=== PATIENT | female | born 1970 | race Caucasian/White ===

== ENCOUNTER 2021-09-06 19:52 | Emergency (ER) | payer MEDICARE ==
[~2021-09-06] VITALS: Ht 160 cm; Wt 120.2 kg
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
[2021-09-06] MEDS ORDERED: AMOX-358 PO (20:43)
[2021-09-06 20:57] VITALS: BP 178/115
== END 2021-09-06 21:08 | disposition home or self-care (01) ==
LOC: ER 19:58
DX: K04.7 Periapical abscess without sinus (principal); Z20.822 Contact with and (suspected) exposure to COVID-19
CPT/HCPCS: 87636; 99283

== ENCOUNTER 2021-12-24 23:12 | Emergency (ER) | payer MEDICARE, MEDICAID ==
[~2021-12-24] VITALS: Ht 167 cm; Wt 127.0 kg
[~2021-12-24 23:12] MED LIST: AMOX-358 PO
[2021-12-24] MEDS ORDERED: NS IV 1000 ML 1,000 ML IV SCH (23:45)
[2021-12-24] MEDS ORDERED: IBUPROFEN 800 MG (MOTRIN) TAB PO ONE (23:45)
[2021-12-24] MEDS ORDERED: ACETAMINOPHEN 500 MG TAB (TYLENOL) PO ONE (23:45)
[2021-12-24 23:51] LABS: BASOPHILS # (AUTO) 0.1 10^3/uL (0.0-0.1); BASOPHILS % (AUTO) 1 % (0-10); EOSINOPHILS # (AUTO) 0.1 10^3/uL (0.0-0.3); EOSINOPHILS % (AUTO) 1 % (0-10); HEMATOCRIT 42 % (35-52); HEMOGLOBIN 13.5 g/dL (11.5-16.0); LYMPHOCYTES # (AUTO) 0.6 10^3/uL (1.0-4.0); LYMPHOCYTES % (AUTO) 7 % (12-44); MEAN CORPUSCULAR HEMOGLOBIN 29 pg (25-34); MEAN CORPUSCULAR HGB CONC 33 g/dL (32-36); MEAN CORPUSCULAR VOLUME 88 fL (80-99); MEAN PLATELET VOLUME 9.8 fL (9.0-12.2); MONOCYTES # (AUTO) 0.4 10^3/uL (0.0-1.0); MONOCYTES % (AUTO) 4 % (0-12); NEUTROPHILS # (AUTO) 8.2 10^3/uL (1.8-7.8); NEUTROPHILS % (AUTO) 86 % (42-75); PLATELET COUNT 231 10^3/uL (130-400); WHITE BLOOD COUNT 9.5 10^3/uL (4.3-11.0)
[2021-12-25 00:09] LABS: ALBUMIN 3.8 GM/DL (3.2-4.5)
[2021-12-25 00:10] LABS: CHLORIDE 93 MMOL/L (98-107); POTASSIUM 4.4 MMOL/L (3.6-5.0); SODIUM 133 MMOL/L (135-145)
[2021-12-25 00:12] LABS: GLUCOSE 230 MG/DL (70-105); TOTAL PROTEIN 7.6 GM/DL (6.4-8.2)
[2021-12-25 00:13] LABS: CARBON DIOXIDE 25 MMOL/L (21-32)
[2021-12-25 00:14] LABS: BILIRUBIN,TOTAL 0.3 MG/DL (0.1-1.0)
[2021-12-25 00:15] LABS: ALKALINE PHOSPHATASE 135 U/L (40-136)
[2021-12-25 00:16] LABS: GFR ESTIMATED 89
[2021-12-25 00:17] LABS: BUN/CREATININE RATIO 11
[2021-12-25 00:19] LABS: ALANINE AMINOTRANSFERASE 47 U/L (0-55); CREATINE KINASE 37 U/L (29-168); MAGNESIUM 1.5 MG/DL (1.6-2.4)
[2021-12-25 00:21] LABS: ERYTHROCYTE SEDIMENTATION RATE 90 MM/HR (0-30)
[2021-12-25 00:49] LABS: FIBRIN DEGRADATION PRODUCTS < 0.27 UG/ML (0.00-0.49); INR 0.9 (0.8-1.4); PARTIAL THROMBOPLASTIN TIME 28 SEC (24-35)
[2021-12-25] MEDS ORDERED: MOLN200C PO (01:29)
[2021-12-25] MEDS ORDERED: BENZONATATE 100 MG (TESSALON) CAPSULE PO SCH (01:30)
[2021-12-25] MEDS ORDERED: BENZ100C18 PO (01:30)
[2021-12-25] MEDS ORDERED: DEXA6TAB6 PO (01:30)
[2021-12-25] MEDS ORDERED: GUAI1TBM19 PO (01:30)
--- NOTE | 2021-12-25 01:30 | ED Cough/URI ---
General Chief Complaint: COVID19 Suspect/Confirmed Stated Complaint: FEVER,CHILLS,HURTS ALL OVER,SOB,KIDNEY PAIN,DIABET Source: patient History of Present Illness Date Seen by Provider: December 24, 2021 Time Seen by Provider: 23:30 Initial Comments PT ARRIVES VIA POV FROM HOME--DAUGHTER DROVE HER HERE DAUGHTER AND SON CARE FOR HER--EACH ONE IS THERE 3-4 DAYS A WEEK. PT STATES SHE HAS BEEN SICK SINCE Monday12/22/21 C/O NON-PRODUCTIVE COUGH AND CONGESTION, RUNNY NOSE C/O FEVER UP TO 102 AT HOME, ALONG WITH CHILLS AND SWEATS C/O HEADACHE C/O BODY ACHES C/O DECREASED TASTE AND SMELL C/O NAUSEA, NO VOMITING, NO DIARRHEA--STATES SHE HAS CHRONIC NAUSEA AND IS PRESCRIBED ZOFRAN. C/O FATIGUE C/O SORE THROAT C/O SHORTNESS OF BREATH PT HAS HISTORY OF ASTHMA, BUT DOES NOT TAKE ANY MEDICATIONS FOR IT AND DOES NOT HAVE ANY INHALERS PT HAS NON-INSULIN DEPENDENT DIABETES, BUT HAS NOT BEEN CHECKING HER BLOOD SUGARS. PT IS NOT COVID OR FLU VACCINATED DENIES ANY KNOWN SICK CONTACTS. PT HAS NOT TAKEN ANYTHING FOR SYMPTOMS AT ANY TIME SYMPTOMS ARE NO DIFFERENT TONIGHT ( MONDAY NIGHT/HOLIDAY WEEKEND) HAS NOT SOUGHT CARE UNTIL TONIGHT PCP: SEES A DR BRIGHT IN [place]--USED TO LIVE THERE, HAS BEEN HER DR FOR 15 YEARS. Allergies and Home Medications Allergies Coded Allergies: No Allergy Information Available (Unverified , 12/24/21) Patient Home Medication List Home Medication List Reviewed: Yes Amoxicillin/Potassium Clav (Augmentin 875-125 Tablet) 1 Each Tablet, 1 EACH PO BID Prescribed by: CARLEE GRIFFIN on 09/06/212042 Benzonatate (Tessalon Perles) 100 Mg Capsule, 200 MG PO TID Prescribed by: CHELO SOLITARIO on 12/25/21129 Dexamethasone (Decadron) 6 Mg Tablet, 6 MG PO DAILY Prescribed by: CHELO SOLITARIO on 12/25/21129 Guaifenesin/Dextromethorphan (Mucinex Dm ER 1,200-60 mg Tab) 1,200 Mg-60 Mg Tb mp.12hr, 1 EACH PO BID Prescribed by: CHELO SOLITARIO on 5/28/22 0130 Molnupiravir (Molnupiravir (Eua)) 200 Mg Capsule, 800 MG PO BID Prescribed by: CHELO SOLITARIO on 12/25/21 0129 Review of Systems Review of Systems Constitutional: see HPI, chills, diaphoresis, fever, malaise, weakness EENTM: see HPI, nose congestion, throat pain Respiratory: see HPI, cough, short of breath; No wheezing Cardiovascular: no symptoms reported; No chest pain Gastrointestinal: see HPI; No abdominal pain, No diarrhea; loss of appetite, nausea; No vomiting Genitourinary: no symptoms reported Musculoskeletal: see HPI Skin: no symptoms reported Psychiatric/Neurological: See HPI, Headache Hematologic/Lymphatic: No Symptoms Reported Immunological/Allergic: no symptoms reported Past Xkajhiq-Rkmwvf-Nzsche Hx Patient Social History Tobacco Use?: Yes (1 PPD) Tobacco type used: Cigarettes Smoking Status: Current Everyday Smoker Substance use?: No Alcohol Use?: No Past Medical History Surgeries: No Respiratory: Yes Asthma Cardiac: Yes High Cholesterol, Hypertension 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 oz. kg; 46.00 BMI Method: General Appearance: WD/WN, no apparent distress, other (FREQUENT HARSH, DRY COUGH ON ARRIVAL. PT TALKS NON-STOP AT LENGTH IN FULL SENTENCES. NO DYSPNEA. ) HEENT: PERRL/EOMI, normal ENT inspection (MILD NASAL CONGESTION), TMs normal, pharynx normal Neck: normal inspection Respiratory: chest non-tender, normal breath sounds, no respiratory distress, no accessory muscle use Cardiovascular: normal peripheral pulses, regular rate, rhythm, no JVD, no murmur, tachycardia Gastrointestinal: non tender, soft Extremities: non-tender, no calf tenderness, normal capillary refill, pedal edema (1+ BILATERALLY) Neurologic/Psychiatric: butt trimmer II-XII nml as tested, no motor/sensory deficits, alert, oriented x 3 Skin: normal color (FLUSHED), warm/dry; No rash Focused Exam Sepsis Stage: Ruled Out Reason for ruling out sepsis: DOES NOT MEET CRITERIA Possible Source: Pulmonary Lactate Level 12/25/21 00:25: Lactic Acid Level 2.42*H Time of Focused Exam: 01:00 Respiratory: Normal Breath Sounds, No Accessory Muscle Use, No Respiratory Distress Cardiovascular: Regular Rate, Rhythm, No Murmur Capillary Refill: Less Than 3 Seconds Skin: normal color, warm/dry Lactic Acid Level Laboratory Tests Test 12/25/21 00:25 Lactic Acid Level 2.42 MMOL/L (0.50-2.00) *H Within 3hrs of presentation: Admin fluids, Blood cultures prior to ABX's, Focus exam, Lactate level, Other (NO ANTIBIOTICS GIVEN PT HAS COVID WITHOUT PNEUMONIA ) Progress/Results/Core Measures Suspected Sepsis SIRS Temperature: Pulse: Respiratory Rate: Laboratory Tests 12/24/21 23:30: White Blood Count 9.5 Blood Pressure / Mean: 12/25/21 00:25: Lactic Acid Level 2.42*H Laboratory Tests 12/24/21 23:30: Creatinine 0.80, INR Comment 0.9, Platelet Count 231, Total Bilirubin 0.3 Results/Orders Lab Results Laboratory Tests Test 12/24/21 23:30 12/25/21 00:18 12/25/21 00:25 12/25/21 01:15 Range/Units White Blood Count 9.5 4.3-11.0 10^3/uL Red Blood Count 4.72 3.80-5.11 10^6/uL Hemoglobin 13.5 11.5-16.0 g/dL Hematocrit 42 35-52 % Mean Corpuscular Volume 88 80-99 fL Mean Corpuscular Hemoglobin 29 25-34 pg Mean Corpuscular Hemoglobin Concent 33 32-36 g/dL Red Cell Distribution Width 14.1 10.0-14.5 % Platelet Count 231 130-400 10^3/uL Mean Platelet Volume 9.8 9.0-12.2 fL Immature Granulocyte % (Auto) 1 % Neutrophils (%) (Auto) 86 H 42-75 % Lymphocytes (%) (Auto) 7 L 12-44 % Monocytes (%) (Auto) 4 0-12 % Eosinophils (%) (Auto) 1 0-10 % Basophils (%) (Auto) 1 0-10 % Neutrophils # (Auto) 8.2 H 1.8-7.8 10^3/uL Lymphocytes # (Auto) 0.6 L 1.0-4.0 10^3/uL Monocytes # (Auto) 0.4 0.0-1.0 10^3/uL Eosinophils # (Auto) 0.1 0.0-0.3 10^3/uL Basophils # (Auto) 0.1 0.0-0.1 10^3/uL Immature Granulocyte # (Auto) 0.1 0.0-0.1 10^3/uL Erythrocyte Sedimentation Rate 90 H 0-30 MM/HR Prothrombin Time 13.0 12.2-14.7 SEC INR Comment 0.9 0.8-1.4 Activated Partial Thromboplast Time 28 24-35 SEC D-Dimer < 0.27 0.00-0.49 UG/ML Sodium Level 133 L 135-145 MMOL/L Potassium Level 4.4 3.6-5.0 MMOL/L Chloride Level 93 L 98-107 MMOL/L Carbon Dioxide Level 25 21-32 MMOL/L Anion Gap 15 H 5-14 MMOL/L Blood Urea Nitrogen 9 7-18 MG/DL Creatinine 0.80 0.60-1.30 MG/DL Estimat Glomerular Filtration Rate 89 BUN/Creatinine Ratio 11 Glucose Level 230 H 70-105 MG/DL Calcium Level 9.0 8.5-10.1 MG/DL Corrected Calcium 9.2 8.5-10.1 MG/DL Magnesium Level 1.5 L 1.6-2.4 MG/DL Total Bilirubin 0.3 0.1-1.0 MG/DL Aspartate Amino Transf (AST/SGOT) 49 H 5-34 U/L Alanine Aminotransferase (ALT/SGPT) 47 0-55 U/L Alkaline Phosphatase 135 40-136 U/L Total Creatine Kinase 37 29-168 U/L Myoglobin 32.9 10.0-92.0 NG/ML Troponin I < 0.028 <0.028 NG/ML C-Reactive Protein High Sensitivity 5.75 H 0.00-0.50 MG/DL B-Type Natriuretic Peptide < 10.0 <100.0 PG/ML Total Protein 7.6 6.4-8.2 GM/DL Albumin 3.8 3.2-4.5 GM/DL Procalcitonin 0.12 H <0.10 NG/ML Serum Test, Qualitative NEGATIVE NEGATIVE Influenza Type A (RT-PCR) Not Detected Not Detecte Influenza Type B (RT-PCR) Not Detected Not Detecte SARS-CoV-2 RNA (RT-PCR) Detected H Not Detecte Glucometer 223 H 70-110 MG/DL Lactic Acid Level 2.42 *H 0.50-2.00 MMOL/L Urine Color YELLOW Urine Clarity CLEAR Urine pH 6.0 5-9 Urine Specific [place] 1.010 L 1.016-1.022 Urine Protein 1+ H NEGATIVE Urine Glucose (UA) NEGATIVE NEGATIVE Urine Ketones NEGATIVE NEGATIVE Urine Nitrite NEGATIVE NEGATIVE Urine Bilirubin NEGATIVE NEGATIVE Urine Urobilinogen 0.2 < = 1.0 MG/DL Urine Leukocyte Esterase NEGATIVE NEGATIVE Urine RBC (Auto) NEGATIVE NEGATIVE Urine RBC NONE /HPF Urine WBC NONE /HPF Urine Squamous Epithelial Cells 0-2 /HPF Urine Crystals NONE /LPF Urine Bacteria NEGATIVE /HPF Urine Casts NONE /LPF Urine Mucus NEGATIVE /LPF Urine Culture Indicated CULTURE PENDING My Orders Orders - CHELO SOLITARIO DO Covid 19 Inhouse Test (12/24/21 23:24) Influenza A And B By Pcr (12/24/21 23:24) Isolation Central Supply Req (12/24/21 23:24) Cbc With Automated Diff (12/24/21 23:32) Comprehensive Metabolic Panel (12/24/21 23:32) Blood Culture (12/24/21 23:32) Urinalysis (12/24/21 23:32) Urine Culture (12/24/21 23:32) Protime With Inr (12/24/21 23:32) Partial Thromboplastin Time (12/24/21 23:32) Ed Iv/Invasive Line Start (12/24/21 23:32) Ed Iv/Invasive Line Start (12/24/21 23:32) Vital Signs Adult Sepsis Patie Q15M (12/24/21 23:32) O2 (12/24/21 23:32) Remove Rings In Anticipation O (12/24/21 23:32) Lactic Acid Analyzer (12/24/21 23:32) Monitor-Rhythm Ecg Trace Only (12/24/21 23:32) Bnp Azul (12/24/21 23:32) Creatine Kinase (12/24/21 23:32) Hs C Reactive Protein (12/24/21 23:32) Fibrin Degradation Products (12/24/21 23:32) Magnesium (12/24/21 23:32) Procalcitonin (Pct) (12/24/21 23:32) Erythrocyte Sedimentation Rate (12/24/21 23:32) Myoglobin Serum (12/24/21 23:32) Troponin I [place] (12/24/21 23:32) Hcg,Qualitative Serum (12/24/21 23:32) Acetaminophen Tablet (Tylenol Tablet) (12/24/21 23:45) Ibuprofen Tablet (Motrin Tablet) (12/24/21 23:45) Ed Iv/Invasive Line Start (12/24/21 23:45) Ns Iv 1000 Ml (Sodium Chloride 0.9%) (12/24/21 23:45) Accucheck Stat ONCE (12/24/21 23:45) Ekg Tracing (12/24/21 23:45) Chest 1 View, Ap/Pa Only (12/25/21 00:01) Dexamethasone Injection (Decadron Inje (12/25/21 01:30) Benzonatate Capsule (Tessalon Perles) (12/25/21 01:30) Medications Given in ED Current Medications Medications Dose Ordered Sig/Merry Route Start Time Stop Time Status Last Admin Dose Admin Acetaminophen 1,000 mg ONCE ONCE PO 12/24/21 23:45 12/24/21 23:47 DC 12/25/21 00:25 1,000 MG Ibuprofen 800 mg ONCE ONCE PO 12/24/21 23:45 12/24/21 23:47 DC 12/25/21 00:25 800 MG Vital Signs/I&O 12/25/21 12/25/21 12/25/21 12/25/21 00:05 00:25 00:25 01:57 Temp 38.9 39.0 39.0 38.0 Pulse 112 112 Resp 26 20 B/P (MAP) 154/100 (118) 147/83 Pulse Ox 97 98 O2 Delivery Room Air Room Air Capillary Refill : Point of Care Testing Finger Stick Blood Glucose: 223 Blood Glucose Action Taken: DOC AND RN NOTIFIED Progress Note : Progress Note PLACED IN ISOLATION ROOM PPE WORN AT ALL TIMES COVID AND FLU TESTING DONE SEPSIS PROTOCOL INITIATED GIVEN: -IV FLUIDS -TYLENOL AND MOTRIN FOR PAIN AND FEVER -DECADRON FOR COVID SYMPTOMS NO MONOCLONAL ANTIBODIES AVAILABLE AT THIS HOUR, IS A HOLIDAY WEEKEND AND NO OUTPATIENT INFUSION CLINIC UNTIL NEXT MONDAY, AND WILL THEN BE OUTSIDE TREATMENT WINDOW AT THAT TIME, SHE HAS BEEN HAVING SYMPTOMS SINCE 12/21/21 WILL PRESCRIBE ORAL MEDICATION FOR COVID SYMPTOMS SHE IS STILL IN TREATMENT WINDOW FOR THAT OPTION. PT DOES NOT MEET CRITERIA FOR INPATIENT CARE COUGH HAS RESOLVED DURING ER STAY NO DYSPNEA NO HYPOXIA--O2 SATS 96% ON ROOM AIR FEVER IS DOWN WITH MEDICATIONS PT TOLERATING LIQUIDS AND NO NAUSEA IN ER. ECG Initial ECG Impression Date: December 25, 2021 Initial ECG Impression Time: 00:21 Initial ECG Rate: 111 Initial ECG Rhythm: S.Tach Diagnostic Imaging Comments CXR--NO ACUTE PROCESS, PENDING RADIOLOGIST REVIEW Reviewed: Reviewed by Me Departure Impression Primary Impression: COVID-19 virus infection Additional Impressions: NIDDM Obesity Disposition: HOME, SELF-CARE Condition: Stable Departure-Patient Inst. Decision time for Depature: 01:15 Referrals: NO,LOCAL PHYSICIAN (PCP/Family) Primary Care Physician Patient Instructions: COVID-19 Home Care/Discharge, Molnupiravir FDA Fact Sheet, COVID-19 Vaccines Add. Discharge Instructions: LOTS OF CLEAR LIQUIDS--WATER, BROTH, JELLO, GATORADE TYLENOL 1 GRAM PLUS MOTRIN 800 MG 4 TIMES A DAY FOR PAIN OR FEVER CONTINUE YOUR REGULAR MEDICATIONS PRESCRIBED QUARANTINE YOURSELF AND ALL HOUSEHOLD OR CLOSE CONTACTS FOR 10 DAYS. RETURN TO ER IF SYMPTOMS WORSEN All discharge instructions reviewed with patient and/or family. Voiced understanding. Scripts Benzonatate (TESSALON PERLES) 100 Mg Capsule 200 MG PO TID, #60 CAP Prov: ALTAF,CHELO K DO 12/25/21 Guaifenesin/Dextromethorphan (Mucinex Dm ER 1,200-60 mg Tab) 1,200 Mg-60 Mg Tbmp.12hr 1 EACH PO BID, #20 EA Prov: ALTAF,CHELO K DO 12/25/21 Dexamethasone (Decadron) 6 Mg Tablet 6 MG PO DAILY, #10 TAB Prov: ALTAFCHELO K DO 12/25/21 Molnupiravir (Molnupiravir (Eua)) 200 Mg Capsule 800 MG PO BID for 5 Days, #40 CAP Prov: CHELO SOLITARIO DO 12/25/21 CHELO SOLITARIO DO December 25, 2021 01:30
[2021-12-25 01:51] LABS: BILIRUBIN,URINE NEGATIVE (NEGATIVE); CLARITY,URINE CLEAR; COLOR,URINE YELLOW; GLUCOSE, URINE (UA) NEGATIVE (NEGATIVE); KETONES,URINE NEGATIVE (NEGATIVE); LEUKOCYTE ESTERASE ,URINE NEGATIVE (NEGATIVE); NITRITE,URINE NEGATIVE (NEGATIVE); PROTEIN,URINE 1+ (NEGATIVE)
[2021-12-25 01:52] LABS: BACTERIA,URINE NEGATIVE /HPF; SQUAMOUS EPITHELIAL CELL,UR 0-2 /HPF
[2021-12-25 01:57] VITALS: BP 147/83
--- NOTE | 2021-12-25 06:14 | Diagnostic Imaging Report ---
INDICATION: Cough EXAMINATION: Chest 12/25/2021 FINDINGS: The cardiomediastinal silhouette is unremarkable. The pulmonary vasculature is within normal limits. The lungs and pleural spaces are clear. IMPRESSION: No evidence of an acute cardiopulmonary process. Dictated by: Dictated on workstation # [id number]
== END 2021-12-25 02:01 | disposition home or self-care (01) ==
LOC: EDUNIT# 23:12 → ER 23:16
DX: U07.1 COVID-19 (principal); E11.9 Type 2 diabetes mellitus without complications; E66.9 Obesity, unspecified; F17.210 Nicotine dependence, cigarettes, uncomplicated; Z68.42 Body mass index [BMI] 45.0-49.9, adult; Z28.310 Unvaccinated for COVID-19
CPT/HCPCS: 36415; 71045; 80053; 81000; 82550; 82947; 83605; 83735; 83874; 83880; 84145; 84484; 84703; 85025; 85379; 85610; 85652; 85730; 86141; 87040; 87088; 87636; 93041

== ENCOUNTER 2023-03-14 09:14 | Inpatient (IN) | payer MEDICARE, MEDICAID ==
[~2023-03-14] VITALS: Ht 162.6 cm; Wt 105.8 kg
[~2023-03-14 09:14] MED LIST changes: +BENZ100C18 PO; +DEXA6TAB6 PO; +GUAI1TBM19 PO; +MOLN200C PO
[2023-03-14 09:39] LABS: BASOPHILS # (AUTO) 0.1 10^3/uL (0.0-0.1); BASOPHILS % (AUTO) 1 % (0-10); EOSINOPHILS # (AUTO) 0.2 10^3/uL (0.0-0.3); EOSINOPHILS % (AUTO) 1 % (0-10); HEMATOCRIT 44 % (35-52); LYMPHOCYTES # (AUTO) 3.5 10^3/uL (1.0-4.0); LYMPHOCYTES % (AUTO) 28 % (12-44); MEAN CORPUSCULAR HEMOGLOBIN 30 pg (25-34); MEAN CORPUSCULAR HGB CONC 32 g/dL (32-36); MEAN CORPUSCULAR VOLUME 92 fL (80-99); MEAN PLATELET VOLUME 10.2 fL (9.0-12.2); MONOCYTES # (AUTO) 0.6 10^3/uL (0.0-1.0); MONOCYTES % (AUTO) 5 % (0-12); NEUTROPHILS # (AUTO) 8.4 10^3/uL (1.8-7.8); NEUTROPHILS % (AUTO) 66 % (42-75); PLATELET COUNT 294 10^3/uL (130-400); WHITE BLOOD COUNT 12.7 10^3/uL (4.3-11.0)
[2023-03-14] MEDS ORDERED: ASPIRIN 81 MG CHEWABLE TABLET PO ONE (09:45)
[2023-03-14] MEDS ORDERED: NITROGLYCERIN 0.4 MG SL TABLETS BTL 25'S SL PRN (09:45)
--- NOTE | 2023-03-14 09:48 | ED General ---
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 PT DESCRIBES CP SCRATCHY (KO DORMAN) History of Present Illness Date Seen by Provider: Mar 14, 2023 Time Seen by Provider: 09:15 Initial Comments This is a 52 year old female who presents with SOA and chest pain. Patient reports she has experienced SOA since Monday. Patient states that she feels like there is a wire brush in her lungs that's preventing her from taking a deep breath. Patient states that she does have asthma. Patient has also experienced chest pain on the left side and nausea since Monday. It has progressively got worse and this morning the pain was a 6-9/10 which is why she came to the hospital. Reports the pain comes and goes. Currently, patient feels a heaviness on her chest. The pain radiates down the L arm and down the abdomen. Hot showers make the pain better and taking a deep breath makes the pain worse. Patient states that she also has an associated stabbing pain on her back on the right side. Normally uses a wheelchair because of her "bad knees". Denies aspirin use. Patient denies fever, chills, vomiting, sweating, urinary urge ncy/frequency/pain, (KO DORMAN) Initial Comments Patient was interviewed and examined by me along with the PA student. Patient describes intermittent chest pains for a few days. Pain is in the center of her chest and feels like a wire brush scraping and sometimes a heaviness or pressure. It radiates to the left arm and her upper back. The back pain is stabbing at times. This is her fourth day of symptoms. (SUZANNE LANTIGUA MD) Allergies and Home Medications Allergies Coded Allergies: iodine (Verified Allergy, Intermediate, Rash, 03/14/23) Hives and swelling to topical iodine. morphine (Verified Allergy, Unknown, 03/14/23) Patient Home Medication List Home Medication List Reviewed: Yes (SUZANNE LANTIGUA MD) Acetaminophen (Tylenol Extra Strength) 500 Mg Tablet, 500 MG PO Q6H PRN for PAIN-MILD (1-4), (Reported) Entered as Reported by: PETR PERRIN on 8/15/23 1414 Last Action: Reviewed Albuterol Sulfate (Ventolin Hfa) 90 Mcg Hfa.aer.ad, 2 PUFF INH Q6H PRN for SHORTNESS OF BREATH, (Reported) Entered as Reported by: PETR PERRIN on 03/14/231413 Last Action: Reviewed Chlorpheniramine Maleate (Chlorpheniramine Maleate) 4 Mg Tablet, 4 MG PO QID PRN for ALLERGY SYMPTOMS, (Reported) Entered as Reported by: PETR PERRIN on 03/14/231413 Last Action: Reviewed Furosemide (Furosemide) 40 Mg Tablet, 20 MG PO BID, (Reported) Entered as Reported by: PETR PERRIN on 03/14/231413 Last Action: Reviewed Ibuprofen (Ibuprofen) 200 Mg Tablet, 600 MG PO Q6H PRN for PAIN-MILD (1-4), (Reported) Entered as Reported by: PETR PERRIN on 03/14/231413 Last Action: Reviewed Metformin HCl (Metformin HCl ER) 500 Mg Tab.er.24h, 500 MG PO BID, (Reported) Entered as Reported by: PETR PERRIN on 03/14/231413 Last Action: Reviewed Discontinued Medications Amoxicillin/Potassium Clav (Augmentin 875-125 Tablet) 1 Each Tablet, 1 EACH PO BID Discontinued Reason: No Longer Taking Prescribed by: CARLEE GRIFFIN on 09/06/212042 Last Action: Discontinued Benzonatate (Tessalon Perles) 100 Mg Capsule, 200 MG PO TID Discontinued Reason: No Longer Taking Prescribed by: CHELO SOLITARIO on 12/25/21129 Last Action: Discontinued Dexamethasone (Decadron) 6 Mg Tablet, 6 MG PO DAILY Discontinued Reason: No Longer Taking Prescribed by: CHELO SOLITARIO on 12/25/21129 Last Action: Discontinued Guaifenesin/Dextromethorphan (Mucinex Dm ER 1,200-60 mg Tab) 1,200 Mg-60 Mg Tbmp.12hr, 1 EACH PO BID Discontinued Reason: No Longer Taking Prescribed by: CHELO SOLITARIO on 12/25/21129 Last Action: Discontinued Molnupiravir (Molnupiravir (Eua)) 200 Mg Capsule, 800 MG PO BID Discontinued Reason: No Longer Taking Prescribed by: CHELO SOLITARIO on 12/25/21128 Last Action: Discontinued Review of Systems Review of Systems Constitutional: No fever EENTM: see HPI Respiratory: dyspnea on exertion, short of breath Cardiovascular: chest pain Gastrointestinal: no symptoms reported Genitourinary: No dysuria, No frequency Musculoskeletal: no symptoms reported Skin: no symptoms reported Psychiatric/Neurological: No Symptoms Reported (KO DORMAN) Past Ydjijvz-Fgipbt-Ccolgu Hx Patient Social History Tobacco Use?: Yes Tobacco type used: Cigarettes Smoking Status: Current Everyday Smoker Use of E-Cig and/or Vaping dev: No Substance use?: Yes Substance type: Marijuana (gummies) Alcohol Use?: No Pt feels they are or have been: No (KO DORMAN) Tobacco Use?: Yes Tobacco type used: Cigarettes Smoking Status: Current Everyday Smoker (SUZANNE LANTIGUA MD) Past Medical History Surgery/Hospitalization HX: asthma, dm, raynauds Surgeries: No Respiratory: Yes Asthma Cardiac: No 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 oz. kg; 45.00 BMI Method: General Appearance: WD/WN Eyes: Bilateral Eye Normal Inspection HEENT: PERRL/EOMI Respiratory: No Accessory Muscle Use, Wheezing (expiratory wheeze) Cardiovascular: Regular Rate, Rhythm Gastrointestinal: Normal Bowel Sounds Back: No CVA Tenderness Extremity: Normal Capillary Refill, No Pedal Edema Neurologic/Psychiatric: Alert, Oriented x3 Skin: Normal Color, Warm/Dry (KO DORMAN) Progress/Results/Core Measures Suspected Sepsis SIRS Temperature: Pulse: 102 Respiratory Rate: 17 Laboratory Tests 03/14/23 09:30: White Blood Count 12.7H Blood Pressure 171 /96 Mean: 121 Laboratory Tests 03/14/23 09:30: Creatinine 0.78, INR Comment 0.9, Platelet Count 294, Total Bilirubin 0.4 (KO DORMAN) Results/Orders Lab Results Laboratory Tests Test 03/14/23 09:30 Range/Units White Blood Count 12.7 H 4.3-11.0 10^3/uL Red Blood Count 4.73 3.80-5.11 10^6/uL Hemoglobin 14.0 11.5-16.0 g/dL Hematocrit 44 35-52 % Mean Corpuscular Volume 92 80-99 fL Mean Corpuscular Hemoglobin 30 25-34 pg Mean Corpuscular Hemoglobin Concent 32 32-36 g/dL Red Cell Distribution Width 14.6 H 10.0-14.5 % Platelet Count 294 130-400 10^3/uL Mean Platelet Volume 10.2 9.0-12.2 fL Immature Granulocyte % (Auto) 0 % Neutrophils (%) (Auto) 66 42-75 % Lymphocytes (%) (Auto) 28 12-44 % Monocytes (%) (Auto) 5 0-12 % Eosinophils (%) (Auto) 1 0-10 % Basophils (%) (Auto) 1 0-10 % Neutrophils # (Auto) 8.4 H 1.8-7.8 10^3/uL Lymphocytes # (Auto) 3.5 1.0-4.0 10^3/uL Monocytes # (Auto) 0.6 0.0-1.0 10^3/uL Eosinophils # (Auto) 0.2 0.0-0.3 10^3/uL Basophils # (Auto) 0.1 0.0-0.1 10^3/uL Immature Granulocyte # (Auto) 0.0 0.0-0.1 10^3/uL Prothrombin Time 12.5 12.2-14.7 SEC INR Comment 0.9 0.8-1.4 Activated Partial Thromboplast Time 30 24-35 SEC D-Dimer 0.30 0.00-0.49 UG/ML Sodium Level 139 135-145 MMOL/L Potassium Level 4.1 3.6-5.0 MMOL/L Chloride Level 102 98-107 MMOL/L Carbon Dioxide Level 25 21-32 MMOL/L Anion Gap 12 5-14 MMOL/L Blood Urea Nitrogen 16 7-18 MG/DL Creatinine 0.78 0.60-1.30 MG/DL Estimat Glomerular Filtration Rate 91 BUN/Creatinine Ratio 21 Glucose Level 202 H 70-105 MG/DL Mean Blood Glucose 226 H <=126 mg/dL Hemoglobin A1c 9.5 H 4.0-5.6 % Calcium Level 9.4 8.5-10.1 MG/DL Corrected Calcium 9.5 8.5-10.1 MG/DL Magnesium Level 1.9 1.6-2.4 MG/DL Total Bilirubin 0.4 0.1-1.0 MG/DL Aspartate Amino Transf (AST/SGOT) 24 5-34 U/L Alanine Aminotransferase (ALT/SGPT) 17 0-55 U/L Alkaline Phosphatase 109 40-136 U/L Myoglobin 60.5 10.0-92.0 NG/ML Troponin I 3.322 *H <0.028 NG/ML Total Protein 7.6 6.4-8.2 GM/DL Albumin 3.9 3.2-4.5 GM/DL (SUZANNE LANTIGUA MD) My Orders Orders - SUZANNE LANTIGUA MD Ekg Tracing (03/14/23 09:17) Cbc With Automated Diff (03/14/23 09:18) Magnesium (03/14/23 09:18) Chest 1 View, Ap/Pa Only (03/14/23 09:18) Comprehensive Metabolic Panel (03/14/23 09:18) Myoglobin Serum (03/14/23 09:18) Protime With Inr (03/14/23:18) Partial Thromboplastin Time (03/14/23 09:18) O2 (03/14/23 09:18) Monitor-Rhythm Ecg Trace Only (03/14/23 09:18) Lipid Panel (03/15/23 06:00) Ed Iv/Invasive Line Start (03/14/23 09:18) Troponin I [place] (03/14/23 09:18) Fibrin Degradation Products (03/14/23 09:39) Nitroglycerin 0.4 Mg Btl 25's (Nitrostat (03/14/23 09:45) Aspirin Chewable Tablet (Aspirin Chewabl (03/14/23 09:45) Clopidogrel Tablet (Clopidogrel Tablet) (03/14/23 11:00) Ns Iv 1000 Ml (Sodium Chloride 0.9%) (03/14/23 11:00) Metoprolol Succinate (Xl) Tab (Metoprolo (03/14/23 11:30) Enoxaparin Injection (Enoxaparin Injecti (03/14/23 11:30) Ed Admission (Communication) (03/14/23 11:31) (SUZANNE LANTIGUA MD) Medications Given in ED (SUZANNE LANTIGUA MD) Vital Signs/I&O 03/14/23 03/14/23 03/14/23 09:15 09:39 11:45 Temp 36.8 36.8 Pulse 102 99 Resp 17 17 B/P (MAP) 171/96 (121) 176/87 Pulse Ox 98 98 O2 Delivery Room Air Room Air Room Air (SUZANNE LANTIGUA MD) Vital Signs/I&O Capillary Refill : (KO DORMAN) Blood Pressure Mean: 121 Progress Note : Time: 11:23 Progress Note Patient was interviewed and examined by me personally along with PA student. PA initiated interview and exam shortly after arrival. I placed the chest pain order set on review of chief complaint. Report was received from the student and I personally interviewed and examined the patient at 0952. ST depression was noted on the EKG. There was no ST elevation. Labs were reviewed and int erpreted by me. Troponin elevation of 3.3 was noted. CBC demonstrated minimal elevation in WBC of 12.7. Glucose was 202 on the chemistry. CBC and chemistry were otherwise unremarkable. Coag panel including D-dimer was negative. Patient received nitroglycerin x1 which reduced her pain from 7/10 down to 4/10. Her systolic blood pressure dropped to 114 at that time. No further nitroglycerin was given. Case was discussed with Dr. Soto, record librarian on- call. He recommended adding Plavix 300 mg and a 1 L normal saline bolus. He recommended coronary angiography. Dr. Munguia, Dr. Soto's cardiology partner, presented to the emergency room to discuss angiography with the patient. Patient disclosed at that time that she had a topical iodine allergy. Risks and benefits of proceeding with catheterization were reviewed with the patient by Dr. Munguia and myself. Patient was offered pretreatment for possible iodine allergy. Patient was fearful of possible reaction to iodine and declined angiography. Patient will be admitted to the ICU for medical management. Dr. Munguia recommended further treatment with Toprol-XL 100 mg and Lovenox 100 mg in the emergency room. Case was discussed with Dr. Gaspar who was agreeable to admission. (SUZANNE LANTIGUA MD) ECG Initial ECG Impression Date: Mar 14, 2023 Initial ECG Impression Time: 09:20 Initial ECG Rate: 100 Initial ECG Rhythm: S.Tach Comment Sinus tachycardia with no ST elevation. ST depression was noted in multiple leads. No abnormal intervals or axis deviation. (SUZANNE LANTIGUA MD) Diagnostic Imaging Diagonstic Imaging: Xray Plain Films/CT/US/NM/MRI: chest Comments NAME: [facility] REC#: [id number] PT STATUS: REG ER : 1970 PHYSICIAN: SUZANNE LANTIGUA MD ADMIT DATE: 03/14/23/ER Draft Date of Exam:03/14/23 CHEST 1 VIEW, AP/PA ONLY INDICATION: Chest pain COMPARISON: 12/25/2022 TECHNIQUE: Single radiograph of the chest dated 03/15/2023. FINDINGS: The cardiac silhouette is within normal limits in size. No significant pulmonary vascular congestion. Calcified right hilar lymph nodes are again seen. The lungs are clear. No pleural effusion. No pneumothorax. No acute osseous abnormality. IMPRESSION: Stable appearing examination without acute cardiopulmonary abnormality and evidence of chronic granulomatous disease. Dictated on workstation # [id number] Dict: 03/14/23 0946 Trans: 03/14/23 1003 [facility] [id number] Interpreted by: CELIO KHANNA MD (SUZANNE LANTIGUA MD) Departure Communication (Admissions) Time/Spoke to Admitting Phy: 11:15 Dr. Gaspar Time/Spoke to Consulting Phy: 11:15 Dr. Soto (SUZANNE LANTIGUA MD) Impression Primary Impression: NSTEMI (non-ST elevated myocardial infarction) Additional Impression: Chest pain Qualified Codes: R07.9 - Chest pain, unspecified Disposition: ADMITTED INPATIENT Condition: Stable Admissions Decision to Admit Reason: Admit from ER (General) Decision to Admit/Date: Mar 14, 2023 Time/Decision to Admit Time: 11:15 (SUZANNE LANTIGUA MD) Departure-Patient Inst. Referrals: NO,LOCAL PHYSICIAN (PCP/Family) Primary Care Physician Add. Discharge Instructions: All discharge instructions reviewed with patient and/or family. Voiced understanding. Medical Student Attestation and Attending Note: I have personally interviewed and examined this patient along with CAM Patton student. I have reviewed student documentation including history, physical, and assessments. I agree with the documentation except where otherwise noted. Exam: General: Alert, oriented, no acute distress, well developed HEENT: Normocephalic and atraumatic Heart: Regular rate and rhythm without murmur Lungs: Clear to auscultation bilaterally with normal effort, upper anterior chest slightly tender to palpation Abdomen: Soft, nontender, nondistended, normal bowel sounds Neuropsych: Alert, oriented, no focal deficits Extremities: No significant edema, calves nontender Skin: Warm and dry without rashes (SUZANNE LANTIGUA MD) KO DORMAN Mar 14, 2023 09:48 SUZANNE LANTIGUA MD Mar 14, 2023 10:51
[2023-03-14 09:49] LABS: INR 0.9 (0.8-1.4); PROTHROMBIN TIME PATIENT 12.5 SEC (12.2-14.7)
[2023-03-14 09:53] LABS: ALBUMIN 3.9 GM/DL (3.2-4.5); POTASSIUM 4.1 MMOL/L (3.6-5.0)
[2023-03-14 09:55] LABS: CALCIUM 9.4 MG/DL (8.5-10.1)
[2023-03-14 09:56] LABS: TOTAL PROTEIN 7.6 GM/DL (6.4-8.2)
[2023-03-14 09:57] LABS: BILIRUBIN,TOTAL 0.4 MG/DL (0.1-1.0)
[2023-03-14 09:59] LABS: CREATININE SERUM 0.78 MG/DL (0.60-1.30)
[2023-03-14 10:02] LABS: MAGNESIUM 1.9 MG/DL (1.6-2.4)
--- NOTE | 2023-03-14 10:03 | Diagnostic Imaging Report ---
INDICATION: Chest pain COMPARISON: 12/25/2022 TECHNIQUE: Single radiograph of the chest dated 03/15/2023. FINDINGS: The cardiac silhouette is within normal limits in size. No significant pulmonary vascular congestion. Calcified right hilar lymph nodes are again seen. The lungs are clear. No pleural effusion. No pneumothorax. No acute osseous abnormality. IMPRESSION: Stable appearing examination without acute cardiopulmonary abnormality and evidence of chronic granulomatous disease. Dictated by: Dictated on workstation # [id number]
[2023-03-14] MEDS ORDERED: NS IV 1000 ML 0 ML ONE (10:52)
[2023-03-14] MEDS ORDERED: HEParin (CATH LAB) 0 ML IV ONE (10:52)
[2023-03-14] MEDS ORDERED: LIDOCAINE 1% INJ 20 ML VIAL ONE (10:52)
[2023-03-14] MEDS ORDERED: HEParin 1000 UNIT/ML (10ML VIAL) FOR BOLUS ONE (10:55)
[2023-03-14] MEDS ORDERED: MIDAZOLAM INJ 5 MG/5 ML VIAL ONE (10:55)
[2023-03-14] MEDS ORDERED: fentaNYL INJECTION 100 MCG/2 ML VIAL ONE (10:55)
[2023-03-14] MEDS ORDERED: NITRO DRIP 25000 MCG/D5W 0 ML IV ONE (10:56)
[2023-03-14] MEDS ORDERED: NS IV 1000 ML 1,000 ML IV SCH (11:00)
[2023-03-14] MEDS ORDERED: CLOPIDOGREL 300 MG TABLET PO ONE (11:00)
--- NOTE | 2023-03-14 11:22 | Consultation-Cardiology ---
HPI-Cardiology Cardiology Consultation: Date of Consultation 03/14/23 Time Seen by a Provider: 10:50 Date of Admission Attending Physician Bebe,Local Physician Admitting Physician Admitting Physician: Dr. Gaspar Attending Physician: Dr. Gaspar Consulting Physician KELLY MORE MD, MA, FACP, FACC, FSCAI, CCDS HPI: Chief Complaint: Shortness of breath and chest discomfort 52 yo woman with several days of malaise, moderate shortness of breath and chest discomfort. Chest discomfort: L-sided, mild to moderate, involving L shoulder at times, no other radiation, not associated with nausea/vomiting or palp or s yncope, improved with s/l NTG in the ER today, not experienced before. Also has gen malaise and weakness, relatively chronic. Chronic, mild, intermittent leg swelling, unchanged Review of Systems-Cardiology Review of Systems Constitutional: As described under HPI Eyes: No vision change Ears/Nose/Throat: No ear discharge, No nasal drainage, No recent hearing loss Respiratory: As described under HPI Cardiovascular: As described under HPI Gastrointestinal: No diarrhea, No nausea, No vomiting Genitourinary: No dysuria, No hematuria, No urine frequency changes Musculoskeletal: No back pain, No joint pain Skin: No rash, No ulcerations Psychiatric/Neurological: No seizure, No focal weakness, No syncope Hematologic: No bleeding abnormalities [id number] Hx Patient Social History Smoking Status: Current Everyday Smoker Alcohol Use?: No Substance type: Marijuana (gummies) Pt feels they are or have been: No Tobacco type used: Cigarettes Past Medical History PMH As described under Assessment. Family Medical History Family Medical History: Father had CABG in his early 60s Allergies and Home Medications Allergies Coded Allergies: morphine (Verified Allergy, Unknown, 03/14/23) Patient Home Medication List Home Medication List Reviewed: Yes Amoxicillin/Potassium Clav (Augmentin 875-125 Tablet) 1 Each Tablet, 1 EACH PO BID Prescribed by: CARLEE GRIFFIN on 09/06/212042 Benzonatate (Tessalon Perles) 100 Mg Capsule, 200 MG PO TID Prescribed by: CHELO SOLITARIO on 12/25/21129 Dexamethasone (Decadron) 6 Mg Tablet, 6 MG PO DAILY Prescribed by: CHELO SOLITARIO on 12/25/21129 Guaifenesin/Dextromethorphan (Mucinex Dm ER 1,200-60 mg Tab) 1,200 Mg-60 Mg Tbmp.12hr, 1 EACH PO BID Prescribed by: CHELO SOLITARIO on 12/25/21 0130 Molnupiravir (Molnupiravir (Eua)) 200 Mg Capsule, 800 MG PO BID Prescribed by: CHELO SOLITARIO on 12/25/21 0129 Physical Exam-Cardiology Physical Exam Vital Signs/I&O 03/14/23 03/14/23 09:15 09:39 Temp 36.8 Pulse 102 Resp 17 B/P (MAP) 171/96 (121) Pulse Ox 98 O2 Delivery Room Air Room Air Capillary Refill : Constitutional: AAO x 3, well-developed, well-nourished HEENT: EOMI, hearing is well preserved; No xanthelasmas are seen Neck: carotid pulses are 2 + bilaterally, with good upstrokes Respiratory: No accessory muscle use; chest expansion is symmetric, chest is bilaterally symmetric, other (good, bilateral air entry) Cardiovascular: regular rate-rhythm, S1 and S2, systolic murmur (soft MADDIE at card base) Gastrointestinal: No tender; soft; No guarding, No rebound; audible bowel sounds Extremities: No clubbing, No cyanosis, No significant edema Neurologic/Psychiatric: oriented x 3, other (moves all limbs equally) Skin: normal color, warm/dry; No cyanosis, No cool, No rash on exposed areas, No ulcerations on exposed areas Data Review Labs Laboratory Tests 03/14/23 09:30: White Blood Count 12.7H, Red Blood Count 4.73, Hemoglobin 14.0, Hematocrit 44, Mean Corpuscular Volume 92, Mean Corpuscular Hemoglobin 30, Mean Corpuscular Hemoglobin Concent 32, Red Cell Distribution Width 14.6H, Platelet Count 294, Mean Platelet Volume 10.2, Immature Granulocyte % (Auto) 0, Neutrophils (%) (Auto) 66, Lymphocytes (%) (Auto) 28, Monocytes (%) (Auto) 5, Eosinophils (%) (Auto) 1, Basophils (%) (Auto) 1, Neutrophils # (Auto) 8.4H, Lymphocytes # (Auto) 3.5, Monocytes # (Auto) 0.6, Eosinophils # (Auto) 0.2, Basophils # (Auto) 0.1, Immature Granulocyte # (Auto) 0.0, Prothrombin Time 12.5, INR Comment 0.9, Activated Partial Thromboplast Time 30, D-Dimer 0.30, Sodium Level 139, Potassium Level 4.1, Chloride Level 102, Carbon Dioxide Level 25, Anion Gap 12, Blood Urea Nitrogen 16, Creatinine 0.78, Estimat Glomerular Filtration Rate 91, BUN/Creatinine Ratio 21, Glucose Level 202H, Calcium Level 9.4, Corrected Calcium 9.5, Magnesium Level 1.9, Total Bilirubin 0.4, Aspartate Amino Transf (AST/SGOT) 24, Alanine Aminotransferase (ALT/SGPT) 17, Alkaline Phosphatase 109, Myoglobin 60.5, Troponin I 3.322*H, Total Protein 7.6, Albumin 3.9 Laboratory Tests 03/14/23 09:30 A/P-Cardiology Assessment/Admission Diagnosis Acute NSTEMI Hypertension Type 2 DM Chronic tobacco use (smoke cigarettes) Elevated BMI SALAZAR - non-compliant with CPAP Multiple allergies (including iodine, NSAIDs, food dyes, "fossil fuel" products) Discussion and Recomendations * Treat with beta-francisco, DAPT, enoxaparin, statin * Advised urgent cardiac cath for eval for intervention (given continuing symptoms of ACS). I had a long discussion with her and the ER physician Dr Dukes did, too. We discussed the rationale of card cath / intervention, risks and benefits, and alternative. Despite our strong recommendation that she consider invasive options and despite a full understanding of all the issues, she refuses * She is being admitted to the ICU to the Hospitalist parker. Further recs to be based on her hospital course * Advised to quit smoking immediately and completely Clinical Quality Measures AMI/AHF: ASA po Prior to arrival: KELLY Durbin MD FACP FAC CCDS Mar 14, 2023 11:22
[2023-03-14] MEDS ORDERED: ENOXAPARIN 100 MG/1 ML SYRINGE SC ONE (11:30)
[2023-03-14] MEDS ORDERED: ONDANSETRON 4 MG (ZOFRAN) ORAL DISSOLVE TAB PO PRN (12:00)
[2023-03-14] MEDS ORDERED: ANTACID SUSPENSION 30 ML UDC PO PRN (12:00)
[2023-03-14] MEDS ORDERED: BISACODYL 10 MG SUPPOSITORY PR PRN (12:00)
[2023-03-14] MEDS ORDERED: LACTULOSE SYRUP 10GM/15ML 30ML UDC PO PRN (12:00)
[2023-03-14] MEDS ORDERED: ENOXAPARIN 100 MG/1 ML SYRINGE SC SCH (12:00)
[2023-03-14] MEDS ORDERED: polyethylene glycoL POWDER 17 GM (MIRALAX) PACK PO PRN (12:00)
[2023-03-14] MEDS ORDERED: MELATONIN 3 MG TABLET PO PRN (12:00)
[2023-03-14] MEDS ORDERED: CALCIUM CARBONATE 500 MG CHEW TABLET PO PRN (12:00)
[2023-03-14] MEDS ORDERED: diphenhydrAMINE 25 MG TABLET PO PRN (12:00)
[2023-03-14] MEDS ORDERED: diphenhydrAMINE INJ 50 MG/ML VIAL IVP PRN (12:00)
[2023-03-14] MEDS ORDERED: ONDANSETRON 4 MG/2 ML (SDV) Z0FRAN IV PRN (12:00)
[2023-03-14] MEDS ORDERED: ACETAMINOPHEN 325 MG TABLET PO PRN (12:00)
[2023-03-14] MEDS ORDERED: MILK OF MAGNESIA 400 MG/5 ML 30 ML UDC PO PRN (12:00)
[2023-03-14] MEDS ORDERED: ACET-2267 PO (14:14)
[2023-03-14] MEDS ORDERED: CHLO4TAB36 PO (14:14)
[2023-03-14] MEDS ORDERED: IBUP-2473 PO (14:14)
[2023-03-14] MEDS ORDERED: METF-865 PO (14:14)
[2023-03-14] MEDS ORDERED: ALBU18HF2 INH (14:14)
[2023-03-14] MEDS ORDERED: FURO40TA4 PO (14:14)
[2023-03-14 15:03] VITALS: BP 130/74
[2023-03-14] MEDS ORDERED: RT-Ipratropium/Albuterol NEB 3 ML VIAL INH PRN (15:15)
[2023-03-14] MEDS: NICOTINE 14 MG PATCH TD SCH (16:41)
[2023-03-14] MEDS: inSUlin ASPART 1 UNIT/0.01 ML (PER UNIT) SC SCH ×3 (16:41→21:23)
--- NOTE | 2023-03-14 17:40 | History & Physical-Hospitalist ---
History of Present Illness HPI/Chief Complaint Myranda Taveras is a 52 year old female with PMH HTN, T2DM, morbid obesity, tobacco abuse, who presented with chest pain. She reports having chest pain since this morning. She describes it as a heaviness in her chest with radiation to her left arm. She also has trouble taking a deep breath. She reports nausea. She denies shortness of breath. She is anxious. She is tearful. Her thought process is tangential. She tells me about her parents health problems. She tells me she has an iodine allergy. She also tells me she has a "fossil fuel" allergy. She says she can not come into contact with anything from fossil fuels. She says if it is vegetable based then she can use it. She is refusing the heart cath for this reason. She says she wants to wait for her son to further discuss the procedure. She voices understanding of the risks/benefits of proceeding with heart cath vs medical management. She wants to defer the heart cath at this time. Source: patient Exam Limitations: no limitations Date Seen 03/14/23 Time Seen by a Provider: 12:00 Attending Physician No,Local Physician PCP Admitting Physician: Caryn Gaspar MD Attending Physician: Caryn Gaspar MD Referring Physician Date of Admission Mar 14, 2023 at 11:52 Home Medications & Allergies Home Medications Reviewed patient Home Medication Reconciliation performed by pharmacy medication reconciliations system support technician and/or nursing. Patients Allergies have been reviewed. Allergies Allergies Coded Allergies iodine (Verified Allergy, Intermediate, Rash, 03/14/23) Hives and swelling to topical iodine. morphine (Verified Allergy, Unknown, 03/14/23) Past [id number] Hx Patient Social History Tobacco Use?: Yes Tobacco type used: Cigarettes Smoking Status: Current Everyday Smoker Use of E-Cig and/or Vaping dev: No Substance use?: Yes Substance type: Marijuana Substance frequency: Rarely Alcohol Use?: No Pt feels they are or have been: No Immunizations Up To Date Tetanus Booster (TDap): Unknown Current Status status: No status: No Advance Directives: No Communicates: Verbally Primary Language: Bol[place]ian Preferred Spoken Language: Bolivian Sensory deficits: Vision impairment Implanted or Applied Medical D: None Past Medical History Asthma [employer] History: Menopausal Gastroesophageal Reflux Chronic Back Pain Diabetes, Non-Insulin dep Anxiety, Depression Blood Disorders: No Family Medical History No Pertinent Family Hx Review of Systems Constitutional: no symptoms reported Respiratory: no symptoms reported Cardiovascular: chest pain Gastrointestinal: nausea Physical Exam Physical Exam Vital Signs Vital Signs - First Documented 03/14/23 09:15 Temp 36.8 Pulse 102 Resp 17 B/P (MAP) 171/96 (121) Pulse Ox 98 O2 Delivery Room Air Capillary Refill : Less Than 3 Seconds Height, Weight, BMI Height: '" Weight: lbs. oz. kg; 39.44 BMI Method: General Appearance: Mild Distress (tearful), Obese HEENT: PERRL/EOMI, Pharynx Normal Neck: Normal Inspection, Supple Respiratory: Lungs Clear, Normal Breath Sounds, No Respiratory Distress Cardiovascular: Regular Rate, Rhythm, No Murmur, Normal Peripheral Pulses Gastrointestinal: Normal Bowel Sounds, Non Tender, Soft Extremity: Non Tender, Pedal Edema Neurologic/Psychiatric: Alert, No Motor/Sensory Deficits Skin: Normal Color, Warm/Dry Results Results/Procedures Labs Laboratory Tests 03/14/23 09:30 Patient resulted labs reviewed. Imaging: Reviewed Imaging Report Assessment/Plan Admission Diagnosis NSTEMI Admission Status: Inpatient Order (span 2 midnights) Reason for Inpatient Admission: Heart attack Assessment and Plan NSTEMI Troponin >[address] depressions Cardiology consulted, recommended heart cath, patient refused Begin ASA, Plavix, Lipitor, Metoprolol Therapeutic Lovenox Monitor troponin Echo ordered Check lipid panel Check urine drug screen HTN Metoprolol Consider STEPHEN inhibitor if needed T2DM Sliding scale insulin A1C ordered Tobacco abuse Nicotine patch Morbid obesity Clinically significant, no acute management needs Diagnosis/Problems Diagnosis/Problems (1) NSTEMI (non-ST elevated myocardial infarction) Status: Acute (2) HTN (hypertension) Status: Acute (3) T2DM (type 2 diabetes mellitus) Status: Acute Qualifiers: Diabetes mellitus computer terminal operator insulin use: without computer terminal operator use (4) Morbid obesity Status: Chronic (5) Tobacco abuse Status: Chronic Clinical Quality Measures AMI/AHF: ASA po Prior to arrival: CARYN Rincon MD Mar 14, 2023 17:40
[2023-03-14] MEDS: ENOXAPARIN 100 MG/1 ML SYRINGE SC SCH (20:56)
[2023-03-14] MEDS: SENNOSIDES 8.6 MG (SENOKOT) TAB PO SCH (21:02)
[2023-03-14] MEDS: DOCUSATE SODIUM 100 MG CAPSULE PO SCH (21:02)
[2023-03-15 04:10] LABS: AMPHETAMINE SCREEN, URINE NEGATIVE (NEGATIVE); BARBITURATE SCREEN URINE NEGATIVE (NEGATIVE); BENZODIAZEPINES SCREEN URINE NEGATIVE (NEGATIVE); CANNABINOID SCREEN, URINE POSITIVE (NEGATIVE); COCAINE SCREEN URINE NEGATIVE (NEGATIVE); METHADONE STAT NEGATIVE (NEGATIVE); OPIATE SCREEN URINE NEGATIVE (NEGATIVE); OXYCODONE STAT NEGATIVE (NEGATIVE); PROPOXYPHENE STAT NEGATIVE (NEGATIVE); TRICYCLIC ANTIDEPRESSANTS SCRE NEGATIVE (NEGATIVE)
[2023-03-15 04:17] LABS: BASOPHILS # (AUTO) 0.1 10^3/uL (0.0-0.1); BASOPHILS % (AUTO) 1 % (0-10); EOSINOPHILS # (AUTO) 0.2 10^3/uL (0.0-0.3); EOSINOPHILS % (AUTO) 1 % (0-10); HEMATOCRIT 38 % (35-52); HEMOGLOBIN 12.3 g/dL (11.5-16.0); LYMPHOCYTES # (AUTO) 4.5 10^3/uL (1.0-4.0); LYMPHOCYTES % (AUTO) 35 % (12-44); MEAN CORPUSCULAR HEMOGLOBIN 30 pg (25-34); MEAN CORPUSCULAR HGB CONC 33 g/dL (32-36); MEAN CORPUSCULAR VOLUME 91 fL (80-99); MEAN PLATELET VOLUME 10.9 fL (9.0-12.2); MONOCYTES # (AUTO) 0.6 10^3/uL (0.0-1.0); MONOCYTES % (AUTO) 5 % (0-12); NEUTROPHILS # (AUTO) 7.6 10^3/uL (1.8-7.8); NEUTROPHILS % (AUTO) 58 % (42-75); PLATELET COUNT 287 10^3/uL (130-400); WHITE BLOOD COUNT 13.1 10^3/uL (4.3-11.0)
[2023-03-15 04:32] LABS: CHLORIDE 104 MMOL/L (98-107); POTASSIUM 4.1 MMOL/L (3.6-5.0); SODIUM 139 MMOL/L (135-145)
[2023-03-15 04:33] LABS: CALCIUM 8.9 MG/DL (8.5-10.1)
[2023-03-15 04:34] LABS: GLUCOSE 180 MG/DL (70-105); TRIGLYCERIDES 425 MG/DL (<150); VLDL CHOLESTEROL 85 MG/DL (5-40)
[2023-03-15 04:35] LABS: CARBON DIOXIDE 26 MMOL/L (21-32)
[2023-03-15 04:38] LABS: CREATININE SERUM 0.78 MG/DL (0.60-1.30); GFR ESTIMATED 91
[2023-03-15 04:39] LABS: BUN/CREATININE RATIO 21; CHOLESTEROL 194 MG/DL (< 200)
[2023-03-15 04:40] LABS: HDL CHOLESTEROL 23 MG/DL (40-60)
[2023-03-15] MEDS: NICOTINE PATCH REMOVAL TP SCH ×2 (05:00→08:50)
[2023-03-15] MEDS: inSUlin ASPART 1 UNIT/0.01 ML (PER UNIT) SC SCH ×4 (06:05→20:33)
[2023-03-15] MEDS ORDERED: LIDOCAINE 1% INJ 20 ML VIAL ONE (08:20)
[2023-03-15] MEDS ORDERED: HEParin (CATH LAB) 2,000 ML IV ONE (08:20)
[2023-03-15] MEDS: NS IV 1000 ML 1,000 ML IV SCH ×4 (08:31→22:44)
[2023-03-15] MEDS: NICOTINE 14 MG PATCH TD SCH (08:31)
[2023-03-15] MEDS: SENNOSIDES 8.6 MG (SENOKOT) TAB PO SCH ×2 (08:32→22:43)
[2023-03-15] MEDS: ASPIRIN 81 MG CHEWABLE TABLET PO SCH (08:32)
[2023-03-15] MEDS: DOCUSATE SODIUM 100 MG CAPSULE PO SCH ×2 (08:32→22:42)
[2023-03-15] MEDS: CLOPIDOGREL 75 MG TABLET PO SCH (08:32)
--- NOTE | 2023-03-15 08:50 | Cardiology Progress Note ---
Subjective Date Seen by Provider: Mar 15, 2023 Time Seen by Provider: 08:47 Subjective/Events-last exam Patient was seen and evaluated, she was still having some active chest pressure Reporting that she had significant chest pain on Monday, March 11, 2023 lasted for about an hour then on Monday had another episode of chest pain was shorter in duration. Patient had elevated troponin she was offered cardiac catheterization yesterday by Dr. Munguia and she declined. This morning I had another discussion with her and she agreed on having the cardiac catheterization done. Review of Systems General: No Chills, No Night Sweats; Fatigue; No Malaise, No Appetite, No Other HEENT: No Head Aches, No Visual Changes, No Eye Pain, No Ear Pain, No Dysphasia, No Sinus Congestion, No Post Nasal Drip, No Sore Throat, No Other Pulmonary: No Dyspnea, No Cough, No Pleuritic Chest Pain, No Other Cardiovascular: Chest Pain; No: Palpitations, Orthopnea, Paroxysmal Noc. Dyspnea, Edema, Lt Headedness, Other Objective-Cardiology Exam Last Set of Vital Signs Vital Signs 03/15/23 03/15/23 03/15/23 07:56 07:59 08:00 Temp 36.1 Pulse 77 Resp 18 B/P (MAP) 128/75 (92) Pulse Ox 93 O2 Delivery Nasal Cannula O2 Flow Rate 2.00 I&O Intake and Output 03/15/23 00:00 Intake Total 1000 ml Output Total 1300 ml Balance -300 ml Intake Oral 1000 ml Output Urine Total 1300 ml # Voids 1 General: Alert, Oriented X3, Cooperative HEENT: Atraumatic, PERRLA Neck: Supple, No JVD, No Thyromegaly Lungs: Clear to Auscultation, Normal Air Movement Heart: Regular Rate, Normal S1, Normal S2, No Murmurs Abdomen: Normal Bowel Sounds, Soft, No Tenderness, No Hepatosplenomegaly, No Masses Extremities: No Clubbing, No Cyanosis, No Edema, Normal Pulses, No Tenderness/Swelling Skin: No Rashes, No Breakdown, No Significant Lesion Neuro: Normal Gait, Normal Speech, Strength at 5/5 X4 Ext, Normal Tone, Sensation Intact Psych/Mental Status: Mental Status NL, Mood NL Results Lab Laboratory Tests 03/14/23 09:30 03/15/23 03:34 A/P-Cardiology Admission Diagnosis Non-ST elevation myocardial infarction Coronary artery disease Hypertension Diabetes mellitus Assessment/Plan Acute non-ST elevation myocardial infarction, still having waxing and waning chest pain Refused cardiac catheterization on March 14, 2023 Patient agreed on the procedure today, I will add her to the schedule and I am planning to proceed with cardiac catheterization this afternoon Hypertension, continue to monitor blood pressure Diabetes mellitus, followed and managed by primary care physician Recommend holding metformin for now Tobaccoism, educated on smoking cessation BMI 39, discussed weight loss and exercise COPD/obstructive sleep apnea noncompliant with CPAP Generalized body ache, back pain, generalized weakness, patient reported that she has been on disability Multiple allergies including latex, plastic, iodine, NSAIDs, food dye, fossil fuel products. VANCE ANNE MD Mar 15, 2023 08:50
--- NOTE | 2023-03-15 08:51 | Cardiac Procedure Note-CS/ASA ---
Pre-Procedure Note Pre-Op Procedure Note Date of Available H&P: Mar 15, 2023 Date H&P Reviewed: Mar 15, 2023 Time H&P Reviewed: 08:50 History & Physical: H&P Reviewed, Patient Examed, No changes noted Pre-Operative Diagnosis: NSTMI Moderate Sedation PreProcedure Time 08:51 ASA Score 3 Airway Lungs Heart ASA score ASA 1: a normal healthy patient ASA 2: a patient with a mild systemic disease (mid diabetes, controlled hypertension, obesity ASA 3: a patient with a severe systemic disease that limits activity (angina, COPD, prior Myocardial infarction) ASA 4: a patient with an incapacitating disease that is a constant threat to life (CHF, renal failure) ASA 5: a moribund patient not expected to survive 24 hrs. (ruptured aneurysm) ASA 6: a declared brain- patient whose organs are being harvested. For emergent operations, add the letter E after the classification Mallampati Classification Grade 3 Sedation Plan Analgesia, Amnesia, Plan communicated to team members, Discussed options with patient/fam, Discussed risks with patient/fam The patient is an appropriate candidate to undergo the planned procedure, sedation, and anesthesia. The patient immediately re-assessed prior to indication. VANCE ANNE MD Mar 15, 2023 08:51
[2023-03-15] MEDS ORDERED: NICOTINE PATCH REMOVAL TP SCH (08:59)
[2023-03-15] MEDS ORDERED: CLOPIDOGREL 75 MG TABLET PO SCH (09:00)
[2023-03-15] MEDS ORDERED: ASPIRIN 81 MG CHEWABLE TABLET PO SCH (09:00)
[2023-03-15] MEDS ORDERED: NICOTINE 14 MG PATCH TD SCH (09:00)
[2023-03-15] MEDS: ENOXAPARIN 100 MG/1 ML SYRINGE SC SCH (10:08)
--- NOTE | 2023-03-15 12:24 | Tele-ICU Progress Note ---
Subjective Date Seen by a Provider: Mar 15, 2023 Time Seen by a Provider: 12:23 Subjective/Events-last exam Patient today remained on mechanical ventilation. Yesterday he failed SBT. Today he is afebrile up to 101.4 F. 3 cultures were done and started on IV antibiotics. Also he looks pale and hemoglobin dropped to 7.5 g. Hence we ordered a 1 unit of packed red blood cells infusion Sepsis Event Evaluation Height, Weight, BMI Height: '" Weight: lbs. oz. kg; 39.44 BMI Method: Exam Exam Patient acknowledged, consented, and participated in this virtual visit which was conducted using real time audio/video Vital Signs Date Time Temp Pulse Resp B/P (MAP) Pulse Ox O2 Delivery O2 Flow Rate FiO2 03/15/23 11:58 36.1 Room Air 03/15/23 11:00 76 115/71 (86) 96 Nasal Cannula 2.00 03/15/23 10:00 70 117/77 (90) 96 Nasal Cannula 2.00 03/15/23 09:00 71 120/99 (106) 95 Nasal Cannula 2.00 03/15/23 08:15 91 Nasal Cannula 2.00 03/15/23 08:00 77 128/75 (92) 93 Nasal Cannula 2.00 03/15/23 07:59 18 95 Nasal Cannula 2.00 03/15/23 07:56 36.1 Room Air 03/15/23 07:08 73 03/15/23 07:00 68 144/84 (104) 92 Room Air 03/15/23 06:00 73 124/71 (88) 92 Room Air 03/15/23 05:00 75 127/74 (91) 93 Room Air 03/15/23 04:07 96 Room Air 03/15/23 04:00 77 25 108/98 (101) 93 Room Air 03/15/23 03:00 74 22 120/79 (93) 92 Room Air 03/15/23 02:00 71 20 134/77 (103) 93 Room Air 03/15/23 01:00 73 22 106/54 (85) 93 Room Air 03/15/23 01:00 73 03/15/23 00:00 74 24 118/69 (88) 93 Room Air 03/14/23 23:55 96 Room Air 03/14/23 23:00 80 24 134/60 (84) 92 Room Air 03/14/23 22:00 77 25 123/70 (97) 97 Room Air 03/14/23 21:48 80 16 132/91 (94) 97 Room Air 03/14/23 20:57 82 140/85 (114) 97 Room Air 03/14/23 20:00 79 174/104 (121) 95 Room Air 03/14/23 20:00 96 Room Air 03/14/23 19:00 80 28 100/64 (87) 94 Room Air 03/14/23 19:00 80 03/14/23 18:00 84 15 134/74 (94) 94 Room Air 03/14/23 17:00 82 15 131/72 (91) 96 Room Air 03/14/23 16:22 96 Room Air 03/14/23 16:00 36.3 03/14/23 16:00 83 10 142/79 (100) 95 Room Air 03/14/23 15:03 36.3 86 91 03/14/23 15:00 82 23 136/74 (94) 96 Room Air 03/14/23 14:00 86 12 130/74 (92) 91 Room Air 03/14/23 13:15 81 22 125/81 (96) 96 Room Air 03/14/23 13:00 84 22 125/81 (96) 96 Room Air 03/14/23 12:45 78 34 109/98 (102) 96 Room Air 03/14/23 12:30 81 8 126/74 (91) 95 Room Air I & O 03/15/23 07:00 Intake Total 1050 ml Output Total 1800 ml Balance -750 ml Height & Weight Height: '" Weight: lbs. oz. kg; 39.44 BMI Method: General Appearance: Mild Distress (tearful), Obese HEENT: PERRL/EOMI, Pharynx Normal Neck: Normal Inspection, Supple Respiratory: Lungs Clear, Normal Breath Sounds, No Respiratory Distress Cardiovascular: Regular Rate, Rhythm, No Murmur, Normal Peripheral Pulses Capillary Refill: Less Than 3 Seconds Extremity: Non Tender, Pedal Edema Neurologic/Psychiatric: Alert, No Motor/Sensory Deficits Skin: Normal Color, Warm/Dry Results Lab Laboratory Tests 03/14/23 09:30 03/15/23 03:34 Assessment/Plan Assessment/Plan as above Critical Care: Critically Ill Patient Time spent with patient (mins): 10 CALEB CHILDS MD Mar 15, 2023 12:24
--- NOTE | 2023-03-15 14:58 | Progress Note - Hospitalist ---
Subjective HPI/CC On Admission Date Seen by Provider: Mar 15, 2023 Time Seen by Provider: 09:45 Myranda Taveras is a 52 year old female with PMH HTN, T2DM, morbid obesity, tobacco abuse, who presented with chest pain. She reports having chest pain since this morning. She describes it as a heaviness in her chest with radiation to her left arm. She also has trouble taking a deep breath. She reports nausea. She denies shortness of breath. She is anxious. She is tearful. Her thought process is tangential. She tells me about her parents health problems. She tells me she has an iodine allergy. She also tells me she has a "fossil fuel" allergy. She says she can not come into contact with anything from fossil fuels. She says if it is vegetable based then she can use it. She is refusing the heart cath for this reason. She says she wants to wait for her son to further discuss the procedure. She voices understanding of the risks/benefits of proceeding with heart cath vs medical management. She wants to defer the heart cath at this time. Subjective/Events-last exam She had some "chest heaviness" overnight. She also reports shortness of breath. Her symptoms have resolved at this time. She is agreeable to heart cath which is scheduled this afternoon. Objective Exam Vital Signs Vital Signs Date Time Temp Pulse Resp B/P (MAP) Pulse Ox O2 Delivery O2 Flow Rate FiO2 03/15/23 14:00 74 121/88 (99) 99 Room Air 03/15/23 11:58 36.1 03/15/23 11:00 2.00 03/15/23 07:59 18 Capillary Refill : Less Than 3 Seconds General Appearance: No Apparent Distress, Obese Respiratory: Lungs Clear, No Respiratory Distress Cardiovascular: Regular Rate, Rhythm, No Murmur Gastrointestinal: Normal Bowel Sounds, Soft Extremity: Normal Inspection, No Pedal Edema Neurologic/Psychiatric: Alert, No Motor/Sensory Deficits Skin: Normal Color, Warm/Dry Results/Procedures Lab Laboratory Tests 03/15/23 03:34 Patient resulted labs reviewed. Imaging: Reviewed Imaging Report Assessment/Plan Assessment and Plan Assess & Plan/Chief Complaint NSTEMI Cardiology following Refused left heart cath yesterday Troponin trending up Agreeable to heart cath today, scheduled for this afternoon Continue ASA, Plavix, Metoprolol Therapeutic Lovenox Echo with normal EF, no focal wall motion abnormalities HTN Metoprolol Consider STEPHEN inhibitor if needed HLD Lipid panel with low HDL, high vLDL, high triglycerides Lipitor T2DM Sliding scale insulin A1C pending Tobacco abuse Nicotine patch Recommend cessation Cannibis abuse Recommend cessation Morbid obesity Clinically significant, no acute management needs Critical Care Critically Ill Patient Diagnosis/Problems Diagnosis/Problems (1) NSTEMI (non-ST elevated myocardial infarction) Status: Acute (2) HTN (hypertension) Status: Acute (3) T2DM (type 2 diabetes mellitus) Status: Acute Qualifiers: Diabetes mellitus terminal manager insulin use: without terminal manager use Diabetes mellitus complication status: with hyperglycemia Qualified Codes: E11.65 - Type 2 diabetes mellitus with hyperglycemia (4) Morbid obesity Status: Chronic (5) Tobacco abuse Status: Chronic (6) HLD (hyperlipidemia) Status: Acute (7) Cannabis abuse Status: Acute Clinical Quality Measures AMI/AHF: ASA po Prior to arrival: VIOLA Rincon MD Mar 15, 2023 14:58
[2023-03-15] MEDS ORDERED: diphenhydrAMINE INJ 50 MG/ML VIAL ONE (15:50)
[2023-03-15] MEDS ORDERED: methylPREDNISolone INJ 125 MG VIAL ONE (15:50)
[2023-03-15] MEDS ORDERED: NITRO DRIP 25000 MCG/D5W 250 ML IV ONE (15:58)
[2023-03-15] MEDS ORDERED: fentaNYL INJECTION 100 MCG/2 ML VIAL ONE ×2 (15:58→16:37)
[2023-03-15] MEDS ORDERED: MIDAZOLAM INJ 5 MG/5 ML VIAL ONE (15:58)
[2023-03-15] MEDS ORDERED: HEParin 1000 UNIT/ML (10ML VIAL) FOR BOLUS ONE (15:58)
[2023-03-15] MEDS ORDERED: VERAPAMIL 5 MG/2 ML (CALAN) VIAL IV ONE (15:58)
[2023-03-15] MEDS ORDERED: MIDAZOLAM INJ 2 MG/2 ML VIAL ONE (16:37)
[2023-03-15] MEDS ORDERED: NS IV 1000 ML 1,000 ML ONE (16:37)
[2023-03-15] MEDS ORDERED: ASPIRIN 325 MG TABLET ONE (17:04)
[2023-03-15] MEDS ORDERED: CLOPIDOGREL 300 MG TABLET PO ONE (17:04)
--- NOTE | 2023-03-15 17:14 | Cardiac Cath Report ---
Cardiac Cath Report Physician (s)/Care Transition Coordinator (s) Physician VANCE ANNE MD Pre-Procedure Diagnosis Pre-Procedure Diagnosis: NSTMI Post-Procedure Note Procedure Start Date: Mar 15, 2023 Name of Procedure: Coronary angiogram Stenting to the circumflex artery Findings/Procedure Note PROCEDURE NOTE: 52-year-old lady with history of hypertension, hyperlipidemia and diabetes mellitus, morbid obesity, tobaccoism, admitted with acute myocardial infarction, offered cardiac catheterization initially she has declined, she understood all the risk and benefit and she did not want the procedure. This morning she agreed on having the procedure and she was scheduled for cardiac catheterization. After explaining the procedure to the patient, all pros and cons were explained, all questions were answered. The patient signed the consent and then she was placed in the cardiac catheterization laboratory. Groin was prepped in SL fashion local anesthesia was used. Sheath placed in the right radial artery, [place] catheter was advanced and engaged the right and left coronary system, angiogram was done. Patient received a total of 7000 units of heparin Catheter was exchanged and [place] left 4.0 guide was advanced and engaged the left system, patient has total occlusion of the obtuse marginal branch proximally. BMW wire was advanced predilatation with 2.5 x 12 mm with multiple inflation was done then deployment of Skypoint 2.75 x 15 mm up to 2.8 mm under 15 [place] with 0% residual stenosis At the end of the procedure the sheath was removed. Vascular band was deployed FINDINGS: Hemodynamics LV did not cross the aortic valve Aorta 84/59 mean of 55 ANATOMY: Left Main is free of obstructive disease Left Anterior Descending is calcified with no obstructive disease Left Circumflex has total occlusion at the proximal obtuse marginal branch, successful balloon angioplasty then stenting using Skypoint 2.75 x 15 mm expanded to 2.8 mm with 0% residual stenosis Right Coronary Artery dominant artery with no obstructive disease LV Gram was not done did not cross the aortic valve known normal ejection fraction PERCUTANEOUS INTERVENTION: Pre stenosis 100% Post Stenosis 0% Pre ABIODUN flow 2 Post ABIODUN flow 3 Dominance right coronary artery CONCLUSION: Subacute myocardial infarction with total occlusion of the obtuse marginal branch successful stenting using 2.75 x 15 mm Skypoint stent expanded to 2.8 mm with 0% residual stenosis Otherwise dominant right coronary artery with no obstructive disease No left ventriculogram was done, echo on March 14, 2023 showed ejection fraction 55 to 60% DISCUSSION AND RECOMMENDATION: Patient was loaded with aspirin and Plavix, I will add Lipitor 80 mg and monitor tolerance and response Anesthesia Type: Conscious Sedation Estimated blood loss (mL): 20 ml Contrast Amount: 79 ml Total Radiation Dose: 879 mGy Post-Procedure Diagnosis Post-operative diagnosis: Non-ST elevation myocardial infarction Coronary artery disease Hypertension Hyperlipidemia Diabetes mellitus Tobaccoism (1) NSTEMI (non-ST elevated myocardial infarction) (2) HTN (hypertension) (3) T2DM (type 2 diabetes mellitus) Qualifiers: Qualified Codes: E11.65 - Type 2 diabetes mellitus with hyperglycemia (4) Morbid obesity (5) Tobacco abuse (6) HLD (hyperlipidemia) (7) Cannabis abuse VANCE ANNE MD Mar 15, 2023 17:14
[2023-03-16] MEDS ORDERED: NS IV 500 ML 500 ML IV PRN (04:15)
[2023-03-16 04:19] LABS: BASOPHILS % (AUTO) 0 % (0-10); EOSINOPHILS % (AUTO) 0 % (0-10); HEMATOCRIT 37 % (35-52); HEMOGLOBIN 12.3 g/dL (11.5-16.0); LYMPHOCYTES # (AUTO) 1.3 10^3/uL (1.0-4.0); LYMPHOCYTES % (AUTO) 12 % (12-44); MEAN CORPUSCULAR HEMOGLOBIN 30 pg (25-34); MEAN CORPUSCULAR HGB CONC 33 g/dL (32-36); MEAN CORPUSCULAR VOLUME 90 fL (80-99); MEAN PLATELET VOLUME 10.5 fL (9.0-12.2); MONOCYTES # (AUTO) 0.2 10^3/uL (0.0-1.0); MONOCYTES % (AUTO) 2 % (0-12); NEUTROPHILS # (AUTO) 9.3 10^3/uL (1.8-7.8); NEUTROPHILS % (AUTO) 85 % (42-75); PLATELET COUNT 299 10^3/uL (130-400); WHITE BLOOD COUNT 10.9 10^3/uL (4.3-11.0)
[2023-03-16 04:49] LABS: CALCIUM 8.3 MG/DL (8.5-10.1); CREATININE SERUM 0.84 MG/DL (0.60-1.30); POTASSIUM 4.4 MMOL/L (3.6-5.0)
[2023-03-16] MEDS ORDERED: POTASSIUM CHLORIDE 20 MEQ TABLET PO SCH (06:00)
[2023-03-16] MEDS ORDERED: MAGNESIUM 1 GM/100 ML IVPB 100 ML IV SCH (06:00)
[2023-03-16] MEDS ORDERED: POTASSIUM CL 10MEQ/50ML IVPB 50 ML IV SCH (06:00)
[2023-03-16] MEDS: inSUlin ASPART 1 UNIT/0.01 ML (PER UNIT) SC SCH (06:09)
--- NOTE | 2023-03-16 07:57 | Cardiology Progress Note ---
Subjective Date Seen by Provider: Mar 16, 2023 Time Seen by Provider: 07:55 Subjective/Events-last exam Patient was seen at bedside, laying down comfortably, no new complaint. Mild congestion Review of Systems General: No Chills, No Night Sweats, No Fatigue, No Malaise, No Appetite, No Ot her HEENT: No Head Aches, No Visual Changes, No Eye Pain, No Ear Pain, No Dysp hasia, No Sinus Congestion, No Post Nasal Drip, No Sore Throat, No Other Pulmonary: No Dyspnea, No Cough, No Pleuritic Chest Pain, No Other Cardiovascular: No: Chest Pain, Palpitations, Orthopnea, Paroxysmal Noc. Dyspnea, Edema, Lt Headedness, Other Objective-Cardiology Exam Last Set of Vital Signs Vital Signs 03/16/23 03/16/23 03/16/23 03/16/23 03:40 07:00 07:18 07:27 Temp 36.6 Pulse 69 Resp 28 B/P (MAP) 148/77 (100) Pulse Ox 97 O2 Delivery Nasal Cannula O2 Flow Rate 2.00 I&O Intake and Output 03/15/23 23:59 Intake Total 950 ml Output Total 1200 ml Balance -250 ml Intake Oral 950 ml Output Urine Total 1200 ml # Voids 2 # Bowel Movements 1 General: Alert, Oriented X3, Cooperative HEENT: Atraumatic, PERRLA Neck: Supple, No JVD, No Thyromegaly Lungs: Clear to Auscultation, Normal Air Movement Heart: Regular Rate, Normal S1, Normal S2, No Murmurs Abdomen: Normal Bowel Sounds, Soft, No Tenderness, No Hepatosplenomegaly, No Masses Extremities: No Clubbing, No Cyanosis, No Edema, Normal Pulses, No Tenderness/Swelling Skin: No Rashes, No Breakdown, No Significant Lesion Neuro: Normal Gait, Normal Speech, Strength at 5/5 X4 Ext, Normal Tone, Sensation Intact Psych/Mental Status: Mental Status NL, Mood NL Results Lab Laboratory Tests 03/16/23 04:11 A/P-Cardiology Admission Diagnosis Non-ST elevation myocardial infarction Coronary artery disease Hypertension Diabetes mellitus Assessment/Plan Status post acute non-ST elevation myocardial infarction, still having waxing and waning chest pain Patient initially refused cardiac catheterization then agreed to it on March 15, 2023 Procedure was done with stenting of his circumflex/obtuse marginal branch with excellent results Coronary artery disease, status post cardiac catheterization and stenting of a totally occluded obtuse marginal branch with 2.75 x 15 mm Skypoint stent. We will require aspirin and Plavix for 1 year Hyperlipidemia, hypertriglyceridemia started on Lipitor 80 mg daily Mild bilateral rhonchi, will give Lasix 20 mg IV. Hypertension, continue to monitor blood pressure Diabetes mellitus, followed and managed by primary care physician Recommend holding metformin for now Tobaccoism, educated on smoking cessation BMI 39, discussed weight loss and exercise COPD/obstructive sleep apnea noncompliant with CPAP Generalized body ache, back pain, generalized weakness, patient reported that she has been on disability Multiple allergies including latex, plastic, iodine, NSAIDs, food dye, fossil fuel products. Okay for discharge and follow-up as an outpatient VANCE ANNE MD Mar 16, 2023 07:56
[2023-03-16] MEDS ORDERED: LOSA25TA41 PO (08:00)
[2023-03-16] MEDS ORDERED: ASPI81TA64 PO (08:00)
[2023-03-16] MEDS ORDERED: EMPA10TA PO (08:00)
[2023-03-16] MEDS ORDERED: CLOP75TA28 PO (08:00)
[2023-03-16] MEDS ORDERED: MTP100TCR PO (08:00)
[2023-03-16] MEDS ORDERED: FUROSEMIDE INJECTION 40 MG/4 ML VIAL IVP NR (08:00)
[2023-03-16] MEDS ORDERED: METF-865 PO (08:00)
[2023-03-16] MEDS ORDERED: PANT40TA2 PO (08:00)
[2023-03-16] MEDS ORDERED: ATOR80TA76 PO (08:00)
[2023-03-16] MEDS: ASPIRIN 81 MG CHEWABLE TABLET PO SCH (08:19)
[2023-03-16] MEDS: NICOTINE 14 MG PATCH TD SCH (08:19)
[2023-03-16] MEDS: NICOTINE PATCH REMOVAL TP SCH (08:19)
[2023-03-16] MEDS: CLOPIDOGREL 75 MG TABLET PO SCH (08:19)
[2023-03-16] MEDS: DOCUSATE SODIUM 100 MG CAPSULE PO SCH (08:20)
[2023-03-16] MEDS: SENNOSIDES 8.6 MG (SENOKOT) TAB PO SCH (08:20)
[2023-03-16] MEDS ORDERED: EMPAGLIFLOZIN 10 MG TABLET PO SCH (09:00)
[2023-03-16] MEDS ORDERED: glipiZIDE 5 MG TABLET PO NR (09:00)
[2023-03-16] MEDS ORDERED: GLIP5TAB13 PO (09:20)
[2023-03-16 10:12] VITALS: BP 151/96
--- NOTE | 2023-03-16 17:34 | Discharge Summary ---
Discharge Summary Hospital Course Problems/Dx: (1) NSTEMI (non-ST elevated myocardial infarction) Status: Acute (2) HTN (hypertension) Status: Acute (3) T2DM (type 2 diabetes mellitus) Status: Acute Qualifiers: Qualified Codes: E11.65 - Type 2 diabetes mellitus with hyperglycemia (4) Morbid obesity Status: Chronic (5) Tobacco abuse Status: Chronic (6) HLD (hyperlipidemia) Status: Acute (7) Cannabis abuse Status: Acute (8) CAD (coronary artery disease) Status: Acute Hospital Course Date of Admission: Mar 14, 2023 at 11:52 Admission Diagnosis : NSTEMI Family Physician/Provider: Lisa Spence Physician Date of Discharge: 03/16/23 Discharge Diagnosis: NSTEMI, CAD Hospital Course: Myranda Taveras is a 52 year old female with PMH HTN, T2DM, morbid obesity, tobacco abuse, who presented with chest pain and was admitted with NSTEMI. Her troponin was significantly elevated and she had ST depression on her EKG. Cardiology was consulted and recommended left heart cath. She initially refused, but subsequently agreed. She was found to have a total occlusion of her left circumflex. Balloon angioplasty was performed followed by stent placement. She was started on Aspirin and Plavix. She was also started on Metoprolol and Losartan. She had mixed hyperlipidemia and was started on Lipitor. She had uncontrolled type II diabetes. She was continued on Metformin. She was also star joshua on Glipizide and Jardiance. She should establish with a PCP. She should follow up with Cardioogy as scheduled. She was encouraged to stop smoking. She was discharged home in stable condition. Labs and Pending Lab Test: Laboratory Tests 03/15/23 20:24: Glucometer 285H 03/16/23 04:11: White Blood Count 10.9, Red Blood Count 4.15, Hemoglobin 12.3, Hematocrit 37, Mean Corpuscular Volume 90, Mean Corpuscular Hemoglobin 30, Mean Corpuscular Hemoglobin Concent 33, Red Cell Distribution Width 14.3, Platelet Count 299, Mean Platelet Volume 10.5, Immature Granulocyte % (Auto) 0, Neutrophils (%) (Auto) 85H, Lymphocytes (%) (Auto) 12, Monocytes (%) (Auto) 2, Eosinophils (%) (Auto) 0, Basophils (%) (Auto) 0, Neutrophils # (Auto) 9.3H, Lymphocytes # (Auto) 1.3, Monocytes # (Auto) 0.2, Eosinophils # (Auto) 0.0, Basophils # (Auto) 0.0, Immature Granulocyte # (Auto) 0.0, Sodium Level 136, Potassium Level 4.4, Chloride Level 104, Carbon Dioxide Level 22, Anion Gap 10, Blood Urea Nitrogen 17, Creatinine 0.84, Estimat Glomerular Filtration Rate 83, BUN/Creatinine Ratio 20, Glucose Level 316H, Calcium Level 8.3L, Phosphorus Level 3.6, Magnesium Level 2.0 03/16/23 05:35: Glucometer 297H Microbiology 03/14/23 MRSA Screen - Final, Complete MRSA not isolated Home Meds Active Glipizide 5 Mg Tablet 5 Mg PO DAILY@0630 30 Days Protonix (Pantoprazole Sodium) 40 Mg Tablet.dr 40 Mg PO DAILY Losartan Potassium 25 Mg Tablet 25 Mg PO DAILY Jardiance (Empagliflozin) 10 Mg Tablet 10 Mg PO DAILY Children's Aspirin (Aspirin) 81 Mg Tab.chew 81 Mg PO DAILY Metoprolol Succinate 100 Mg Tab.er.24h 100 Mg PO DAILY Atorvastatin Calcium 80 Mg Tablet 80 Mg PO HS Clopidogrel (Clopidogrel Bisulfate) 75 Mg Tablet 75 Mg PO DAILY Metformin HCl ER (Metformin HCl) 500 Mg Tab.er.24h 500 Mg PO BID Hold metformin for 48 hours Reported Chlorpheniramine Maleate 4 Mg Tablet 4 Mg PO QID PRN Tylenol Extra Strength (Acetaminophen) 500 Mg Tablet 500 Mg PO Q6H PRN Ventolin Hfa (Albuterol Sulfate) 90 Mcg Hfa.aer.ad 2 Puff INH Q6H PRN Furosemide 40 Mg Tablet 20 Mg PO BID TAKES OF A 40MG LAST FILLED 06-10-2022 #60//60DS Assessment/Pt Instructions See instructions Discharge Planning: >30 minutes discharge planning Discharge Instructions Discharge Diet: Low Sodium Diet, ADA Diet Activity as Tolerated: Yes Consultations Cardiology Discharge Physical Examination Vital Signs Vital Signs Date Time Temp Pulse Resp B/P (MAP) Pulse Ox O2 Delivery O2 Flow Rate FiO2 03/16/23 10:12 151/96 Room Air 03/16/23 08:24 97 03/16/23 08:22 35.9 03/16/23 08:00 2.00 General Appearance: No Apparent Distress, Obese Respiratory: Lungs Clear, No Respiratory Distress Cardiovascular: Regular Rate, Rhythm, No Murmur Gastrointestinal: Normal Bowel Sounds, Soft Extremity: Normal Inspection, No Pedal Edema Skin: Normal Color, Warm/Dry Neurologic/Psychiatric: Alert, No Motor/Sensory Deficits Allergies: Coded Allergies: iodine (Verified Allergy, Intermediate, Rash, 03/14/23) Hives and swelling to topical iodine. morphine (Verified Allergy, Unknown, 03/14/23) Copy Copies To 1: [facility] [place] Discharge Summary Date of Admission Mar 14, 2023 at 11:52 Date of Discharge Mar 16, 2023 at 10:31 Discharge Date: Mar 16, 2023 Discharge Time: 10:31 Admission Diagnosis NSTEMI Consults/Procedures Consulations Cardiology Procedures Left heart cath and stenting Discharge Diagnosis NSTEMI CAD HTN HLD T2DM Tobacco abuse Cannibis abuse Morbid obesity (1) NSTEMI (non-ST elevated myocardial infarction) Status: Acute (2) HTN (hypertension) Status: Acute (3) T2DM (type 2 diabetes mellitus) Status: Acute Qualifiers: Qualified Codes: E11.65 - Type 2 diabetes mellitus with hyperglycemia (4) Morbid obesity Status: Chronic (5) Tobacco abuse Status: Chronic (6) HLD (hyperlipidemia) Status: Acute (7) Cannabis abuse Status: Acute (8) CAD (coronary artery disease) Status: Acute Clinical Quality Measures AMI/AHF: ASA po Prior to arrival: VIOLA Rincon MD Mar 16, 2023 17:32
[2023-03-17] MEDS ORDERED: glipiZIDE 5 MG TABLET PO SCH (06:30)
== END 2023-03-16 10:31 | disposition home or self-care (01) | DRG 247 ==
LOC: EDUNIT# 09:14 → ER 09:17 → ICU 11:52
PROVIDERS: ADMIT Internal Medicine; ATTEND Internal Medicine
PROC: 027034Z Dilation of Coronary Artery, One Artery with Drug-eluting Intraluminal Device, Percutaneous Approach (ICD-10-PCS; principal; 2023-03-15)
PROC: B2111ZZ Fluoroscopy of Multiple Coronary Arteries using Low Osmolar Contrast (ICD-10-PCS; 2023-03-15)
DX: I21.4 Non-ST elevation (NSTEMI) myocardial infarction (principal); Z68.41 Body mass index [BMI] 40.0-44.9, adult; I25.10 Atherosclerotic heart disease of native coronary artery without angina pectoris; J44.9 Chronic obstructive pulmonary disease, unspecified; E78.2 Mixed hyperlipidemia; E78.1 Pure hyperglyceridemia; I10 Essential (primary) hypertension; E11.65 Type 2 diabetes mellitus with hyperglycemia; F17.210 Nicotine dependence, cigarettes, uncomplicated; K21.9 Gastro-esophageal reflux disease without esophagitis; G89.29 Other chronic pain; M54.9 Dorsalgia, unspecified; E66.01 Morbid (severe) obesity due to excess calories; F41.9 Anxiety disorder, unspecified; F32.A Depression, unspecified; G47.33 Obstructive sleep apnea (adult) (pediatric); F12.10 Cannabis abuse, uncomplicated; Z79.84 Long term (current) use of oral hypoglycemic drugs; Z88.5 Allergy status to narcotic agent; Z88.8 Allergy status to other drugs, medicaments and biological substances; Z79.899 Other long term (current) drug therapy; Z79.1 Long term (current) use of non-steroidal anti-inflammatories (NSAID)
CPT/HCPCS: 36415; 71045; 80048; 80053; 80061; 80306; 82947; 83036; 83735; 83874; 84100; 84484; 85025; 85027; 85379; 85610; 85730; 87081; 93005; 93041; 93306; 93454